=== PATIENT | male | born 1945 | race Caucasian/White ===

== ENCOUNTER 2024-09-12 15:53 | Emergency (ER) | payer MEDICARE, OTHER, SELFPAY ==
[2024-09-12 17:06] LABS: Hematocrit 38.5 % (39.0-52.0); Hemoglobin 13.7 g/dL (13.0-18.0); Mean Corp Hgb Conc. 35.6 g/dL (33.0-37.0); Mean Corpuscular Volume 84.2 fL (80.0-94.0); Mean Platelet Volume 9.8 fL (7.4-10.4); Platelet Count 310 10^3/uL (130-400); Red Blood Cell Count 4.57 10^6/uL (4.70-6.10); Red Cell Dist. Width 13.1 % (11.5-14.5); White Blood Cell Count 9.5 10^3/uL (4.8-10.8)
[2024-09-12 17:19] LABS: ALT (SGPT) 21 U/L (0-50); AST (SGOT) 22 U/L (17-59); Albumin 4.6 g/dl (3.5-5.0); Alkaline Phosphatase 84 U/L (38-126); Blood Urea Nitrogen 24 mg/dl (9-20); Calcium 9.4 mg/dl (8.4-10.2); Carbon Dioxide 23 mmol/L (22-30); Chloride 107 mmol/L (98-107); Estimated Creatinine Clearance 80 ml/min; Glucose 115 mg/dl (70-99); Potassium 4.4 mmol/L (3.5-5.1); Sodium 141 mmol/L (135-145); Total Bilirubin 0.8 mg/dl (0.2-1.3); Total Protein 7.1 g/dl (6.3-8.2); eGFR > 60.00
--- NOTE | 2024-09-12 17:27 | ED.GENMED ---
History of Present Illness
General
Chief Complaint: Dehydration Symptoms
Source: patient and spouse
Time Seen by Provider: 09/12/24 16:43
History of Present Illness
History of Present Illness:
79-year-old male presents to the emergency department with a history of first feeling ill on Tuesday evening. Described as just not feeling great associated with nonbloody diarrhea approximately every 2-3 hours. He denies at that time vomiting. He
did note that his upper abdomen seemed a little uncomfortable but that is since resolved. The diarrhea continued until Tuesday when he says he felt better. He took a shower and wonders if it was too hot because afterwards he felt very fatigued.
This morning he felt 'good'. However, throughout the day he notes that he again feels very tired. He is eating and drinking but less than usual. He denies vomiting, chest pain or pressure, dyspnea, fever, chills, abdominal pain, URI symptoms,
urinary symptoms, bleeding, new back pain, or other complaints. Patient was seen in urgent care referred to the emergency department for further workup.
Past History
Past History
ED Past Medical History: CAD, HTN, Hypercholesterolemia and Other (Kidney stones, aortic aneurysm under observation)
ED Past Surgical History: Cardiac and Cholecystectomy
Social History
Tobacco: Non-smoker
Alcohol: None
Drug: None
Personal:
Living: with family
Phy Exam
Physical Exam
Physical Exam:
GENERAL: Alert , in no apparent distress
EYE: pupils equal and reactive, conjunctive pink
NECK: Supple, no significant adenopathy.
ENT: o/p clr, mm slightly dry
CARDIAC: Regular rate and rhythm .
LUNGS: Clear breath sounds bilaterally, no acute respiratory distress, no wheezes/rales/rhonchi
ABDOMEN: Soft, without focal tenderness, no r/g, no cvat
NEUROLOGICAL: Alert and oriented, no focal neuro deficits
SKIN: Warm and dry, skin intact.
MUSCULOSKELETAL: No edema, well perfused.
PSYCH: Normal and appropriate interaction.
Course
Orders/Labs/Results
Orders:
Orders
09/12/24 16:43
Electrocardiogram (*1) Urgent
Reason for Study: Other
Other Reason for Exam: weak
EKG- Treatment ONCE
09/12/24 16:56
Complete Blood Count/No Diff Urgent
Comprehensive Metabolic Panel Urgent
Troponin I Urgent
09/12/24 17:27
0.9% Sodium Chloride 500 ml [Nss] 500 ml IV BOLUS
Abnormal Lab Results
09/12/24
16:56
RBC 4.57 L 10^6/uL
(4.70-6.10)
Hct 38.5 L %
(39.0-52.0)
BUN 24 H mg/dl
(9-20)
Glucose 115 H mg/dl
(70-99)
09/12/24 16:56
09/12/24 16:56
Vital Signs
Initial and Last Documented VS:
Initial Vital Signs
Temp Pulse Resp BP Pulse Ox
98.3 F 66 20 133/68 99
09/12/24 15:55 09/12/24 15:55 09/12/24 15:55 09/12/24 15:55 09/12/24 15:55
Last Documented Vital Signs
Temp Pulse Resp BP Pulse Ox
98.3 F 66 20 113/57 96
09/12/24 15:55 09/12/24 15:55 09/12/24 15:55 09/12/24 18:00 09/12/24 18:45
*Critical Care Note
Total Time (30-74mins, 75-104mins- exclusive of procedures): Not Applicable
Update Note
Update Note:
Patient presents to the Emergency Department with diarrhea and fatigue
Number and Complexity of Problems Addressed at the Encounter
� Chronic conditions affecting care:
� Acute Exacerbation and/or Progression of Chronic Illness:
� Differential Diagnosis includes: But not limited to electrolyte abnormality, ACS, dehydration, etc. etc.
Amount and/or Complexity of Data to be Reviewed and Analyzed
� I performed an independent evaluation of and my interpretation is:
EKG: Read by me, sinus bradycardia, no acute ischemia noted
CT:
Xrays:
Laboratory Studies: Mild prerenal azotemia suggesting dehydration, otherwise generally unremarkable
Other:
� Review of other/old records reveals:
� Clinical information was obtained by an independent historian: who is bedside
� Prescriptions/Medications Considered but not given:
� Further testing considered but not performed: Highly doubt acute abdominal process such as colitis etc. given no nausea, vomiting, fever, or even more importantly abdominal pain or tenderness to palpation. Patient is asking
for sandwich which was provided for him.
Risk of Complications and/or Morbidity or Mortality of Patient Management
� Social determinants of health affecting care:
� Discussion with other providers (PCP, Hospitalists, Consultants, etc):
� Escalation of care including admission/observation vs risk of discharge considered: 6:54 PM that patient ate a full meal here, no abdominal tenderness, feels well and would like to go home. No major abnormalities noted on
history physical or testing here, stable for discharge with instructions for close follow-up.
ED Attending Note
-
Portions of this chart may have been created with voice recognition software.� Occasional wrong word or��sound alike� substitutions may have occurred due to the inherent limitations of voice recognition software.
Discharge Plan
Departure
Patient Disposition: Home (Routine Discharge)
Date of Disposition: 09/12/24
Time of Disposition: 18:54
Patient with high blood pressure during this ER visit?: Yes
Condition: Good
Discharge Problem:
Dehydration
Instructions: Dehydration, Adult (DC), BLOOD PRESSURE
Prescriptions:
No Action
lisinopril 20 MG tablet
20 mg PO DAILY
amlodipine 2.5 MG tablet
2.5 mg PO DAILY
clopidogrel 75 MG tablet
75 mg PO DAILY
aspirin [Aspir-Low] 81 MG tablet,delayed release (DR/EC)
81 mg PO DAILY
acetaminophen [Tylenol Extra Strength] 500 MG tablet
500 mg PO QID
simvastatin 40 MG tablet
40 mg PO DAILY
nitroglycerin 0.4 MG tablet, sublingual
0.4 mg sublingual PRN PRN (Reason: chest pain)
metoprolol succinate 25 MG tablet extended release 24 hr
25 mg PO DAILY
cholecalciferol (vitamin D3) 2,000 UNIT tablet
2,000 unit PO DAILY
Referrals:
Dick Pearson, DO [Family Provider] - Tomorrow
Activity Restrictions/Additional Instructions:
IF YOU DEVELOP RECURRENT FATIGUE, ANY CHEST PAIN OR PRESSURE, ABDOMINAL PAIN, VOMITING, FEVER, SHORTNESS OF BREATH, DIZZINESS, OR OTHER WORRISOME SIGNS, PLEASE RETURN TO THE ER IMMEDIATELY.
Interventions
Interventions:
*Risk Screen - Suicide Last Done: 09/12/24 17:47
*General Assessment Last Done: 09/12/24 15:55
*Neglect/Abuse Screening Last Done: 09/12/24 17:47
*ED- Fall Risk Assessment Last Done: 09/12/24 16:34
*ED COVID-19 Vaccine History Last Done: 09/12/24 16:34
ED- Cardiac Assessment Last Done: 09/12/24 16:34
ED- Neurological Assessment Last Done: 09/12/24 16:34
ED- Pulmonary Assessment Last Done: 09/12/24 16:34
Discharge Date and Time
Print Language: AMHARIC
[2024-09-12 17:29] LABS: Troponin I < 0.012 ng/ml
[2024-09-12] MEDS: NSS 500 IV (17:40)
== END 2024-09-12 19:22 | disposition home or self-care (01) ==
LOC: EMR 15:53
PROVIDERS: EMERGENCY PHYSICIAN Emergency Medicine; FAMILY PHYSICIAN Family Medicine
DX: E86.0 Dehydration (principal); I25.10 Atherosclerotic heart disease of native coronary artery without angina pectoris; I10 Essential (primary) hypertension; E78.00 Pure hypercholesterolemia, unspecified; Z90.49 Acquired absence of other specified parts of digestive tract
CPT/HCPCS: 96360; 99284; 80053; 84484; 85027; 93005